=== PATIENT | female | born 1960 | race Caucasian/White ===

== ENCOUNTER → 2019-03-30 | Outpatient (CLI) | payer OTHER ==
--- NOTE | 2019-03-30 15:23 | PCVCIMAG ---
APPROVED REPORT Study performed: 03/30/2019 11:47:49 Exam: Stress Echocardiogram Indication: Chest pain Patient Location: Echo lab Stress Nurse: Marisa Newton RN Room #: 2 Status: routine Ht: 5 ft 5 in HR: 64 bpm BP: 124/84 mmHg Rhythm: Incomplete RBBB Medical History Cardiac Risk Factors: Hyperlipidemia Previous Cardiac Procedures: none Pretest Chest Pain Characteristics: Non-exertional Chest pain Exercise History: Physically active Procedure The patient underwent an Exercise Stress Test using the Omar Protocol. Blood pressure, heart rate, and EKG were monitored. An Echocardiogram was performed by dental laboratory technician apprentice in four stages in quad fashion. At peak stress, four selected images were obtained and placed side by side with resting images for comparison. Stress Test Details Stress Test: Exercise stress testing was performed using a Omar protocol. HR Resting HR: 64 bpmMax Heart Rate (APMHR): 161 bpm Max HR Achieved: 160 bpmTarget HR (85% APMHR): 136 bpm % of APMHR: 99 Recovery HR: 82 bpm HR response to stress: Normal HR response to stress BP Resting BP: 124/84 mmHg Max BP: 160/80 mmHg Recovery BP: 142/80 mmHg BP response to stress: Normal blood pressure response to stress. ECG Resting ECG: Sinus Rhythm, Incomplete RBBB Stress ECG: Sinus Rhythm, Incomplete RBBB ST Change: Non-ischemic Maximum ST Deviation: -1.9 mm Arrhythmia: Rare PACs Recovery ECG: Sinus Rhythm, Incomplete RBBB Recovery ST Change: Non-ischemic Recovery ST Deviation: -0.35 mm Recovery Arrhythmia: None Clinical Reason for Termination: Maximal effort Stress Symptoms: fatigue Exercise duration: 10 min 54 sec Highest Stage Achieved: Stage 4: 4.2 mph at 16% grade. Exercise capacity: 13.7 METs Overall Exercise Capacity for Age: Good Scale: Active Angina Score: None No complications. Stress ECG Conclusion [place] Treadmill Score is 19.5 which is Low risk. Pre-Stress Echo The resting Echocardiogram showed normal left ventricular contractility with an estimated Ejection Fraction of about 55-60%. Normal wall motion in all segments on baseline images. Post-Stress Echo The stress Echocardiogram showed normal left ventricular contractility with an estimated Ejection Fraction of about 65-70%. Normal augmentation of wall motion in all segments on post stress images. Clinical No clinical or ECG evidence for ischemia. Conclusion Clinical Response: Non-ischemic Exercise Capacity: Superior Stress ECG Response: Non-ischemic Stress Echo Images: Non-ischemic No clinical, EKG or echocardiographic evidence for ischemia. No echocardiographic evidence for exercise induced ischemia. Normal stress echocardiogram with maximal exercise stress. Mild mitral regurgitation is seen. No regurgitation or stenosis present on pulmonic, tricuspid and aortic valves. <Conclusion> No clinical, EKG or echocardiographic evidence for ischemia. No echocardiographic evidence for exercise induced ischemia. Normal stress echocardiogram with maximal exercise stress. Mild mitral regurgitation is seen. No regurgitation or stenosis present on pulmonic, tricuspid and aortic valves.
== END | disposition home or self-care (01) ==
LOC: PCVCIMAG 11:29
PROVIDERS: ATTEND Family Medicine
DX: I34.0 Nonrheumatic mitral (valve) insufficiency (principal)
CPT/HCPCS: 93325; 93351